=== PATIENT | female | born 1940 | race Two or more races ===

== ENCOUNTER → 2017-05-02 | Outpatient (CLI) | payer BC | END | disposition home or self-care (01) | LOC: HKI 14:56 | DX: M17.11 Unilateral primary osteoarthritis, right knee (principal) | CPT/HCPCS: 73564; 73564-RT ==

== ENCOUNTER → 2017-07-24 | Outpatient (CLI) | payer BC | END | disposition home or self-care (01) | LOC: HKI 10:48 | DX: Z01.818 Encounter for other preprocedural examination (principal) | CPT/HCPCS: Z7500 ==

== ENCOUNTER 2017-07-26 06:15 | Inpatient (IN) | payer BC ==
[~2017-07-26 06:15] MED LIST: CEFAZOLIN SODIUM 2GM/D5W 50 X1 IVPB; TRANEXAMIC ACID 1,000 MG in DEXTROSE 5% 100 ML IV
[2017-07-26] MEDS: CELECOXIB 200 MG CAP PO (06:43)
[2017-07-26] MEDS: DEXAMETHASONE 4 MG/ML 1 ML INJ IV (06:44)
[2017-07-26] MEDS: LANSOPRAZOLE 30 MG CAP PO (06:44)
[2017-07-26] MEDS: oxyCODONE (CR) 10 MG TAB [oxyCONTIN] PO (06:44)
[2017-07-26] MEDS: ONDANSETRON 4 MG INJ IV ×5 (06:44→21:09)
[2017-07-26] MEDS: ACETAMINOPHEN 1000MG/100ML IV 100 ML IVPB (06:45)
[2017-07-26] MEDS: LACTATED RINGER'S 1,000 ML IV* ×2 (06:45→13:54)
[2017-07-26] MEDS ORDERED: MIDAZOLAM 1 MG/ML 2 ML INJ (07:36)
[2017-07-26] MEDS ORDERED: ROPIVACAINE 0.5 % 30 ML VIAL (08:21)
[2017-07-26] MEDS: ROPIVACAINE 0.2% 60 ML, morphine SULFATE (PF) 4 MG, CLONIDINE 100 MCG, KETOROLAC 30 MG,... INJ (08:40)
[2017-07-26] MEDS: BACITRACIN 50000 UNITS INJ (08:41)
[2017-07-26] MEDS: POLYMYXIN B 500000 UNIT INJ (08:42)
[2017-07-26] MEDS ORDERED: LIDOCAINE 2% (SDV) 5 ML INJ (10:04)
[2017-07-26] MEDS ORDERED: ROCURONIUM 50 MG INJ (10:04)
[2017-07-26] MEDS ORDERED: METOCLOPRAMIDE 10 MG INJ (10:04)
[2017-07-26] MEDS ORDERED: ETOMIDATE 20 MG INJ (10:04)
[2017-07-26] MEDS ORDERED: ONDANSETRON 4 MG INJ (10:04)
[2017-07-26] MEDS ORDERED: CEFAZOLIN 1 GM INJ (10:13)
[2017-07-26] MEDS ORDERED: BISACODYL 10 MG SUPP PR (10:30)
[2017-07-26] MEDS ORDERED: KETOROLAC 15 MG INJ IV (10:30)
[2017-07-26] MEDS ORDERED: HYDROmorphONE (0.2 MG/ML) 10ML SYG IV ×2 (10:30)
[2017-07-26] MEDS ORDERED: NA PHOSPHATE/BIPHOS 133 ML ENEMA PR (10:30)
[2017-07-26] MEDS ORDERED: oxyCODONE 5 MG TAB PO (10:30)
[2017-07-26] MEDS ORDERED: NALOXONE (0.4 MG/ML) INJ IV ×2 (10:30)
[2017-07-26] MEDS ORDERED: ZOLPIDEM 5 MG TAB PO (10:30)
[2017-07-26] MEDS ORDERED: ONDANSETRON 4 MG INJ IV (10:30)
[2017-07-26] MEDS ORDERED: MAGNESIUM HYDROXIDE 30ML CUP PO (10:30)
[2017-07-26] MEDS ORDERED: FENTAnyl 50 MCG/ML VIAL IV (10:30)
[2017-07-26] MEDS ORDERED: TRIMETHOBENZAMIDE 100 MG/ML VIAL IM (10:30)
[2017-07-26] MEDS ORDERED: METOCLOPRAMIDE 10 MG INJ IV (10:30)
[2017-07-26] MEDS ORDERED: DIPHENHYDRAMINE 50 MG INJ IV (10:30)
[2017-07-26] MEDS ORDERED: LABETALOL HCL 20MG INJ IV (10:30)
[2017-07-26] MEDS ORDERED: MEPERIDINE 25 MG INJ IV (10:30)
[2017-07-26] MEDS ORDERED: SENNA/DOCUSATE NA (8.6MG/50MG) TAB PO (10:30)
[2017-07-26] MEDS ORDERED: DIPHENHYDRAMINE 50 MG INJ IM (10:30)
[2017-07-26] MEDS ORDERED: ASPIRIN (EC) 325 MG TAB PO (10:32)
[2017-07-26] MEDS ORDERED: DOCUSATE SODIUM 100 MG CAP PO (10:32)
[2017-07-26] MEDS ORDERED: CEFAZOLIN 1 GM/50 ML (PMX) 50 ML IVPB (10:33)
[2017-07-26] MEDS: FENTAnyl 2MCG/ML-ROPIV 0.2% 100 ML BAG EPI ×2 (10:48→21:11)
[2017-07-26] MEDS: CEFAZOLIN 1 GM/50 ML (PMX) 50 ML IVPB ×2 (10:52→17:56)
[2017-07-26] MEDS: ASPIRIN (EC) 325 MG TAB PO (10:52)
[2017-07-26] MEDS: DOCUSATE SODIUM 100 MG CAP PO (10:52)
[2017-07-26] MEDS: HYDROCHLOROTHIAZIDE 25 MG TAB PO (11:30)
[2017-07-26] MEDS ORDERED: LORAZEPAM 0.5 MG TAB PO (11:30)
[2017-07-26] MEDS ORDERED: hydrALAzine 20 MG INJ IV (11:30)
[2017-07-26] MEDS: SOD CHLORIDE 0.9% 1,000 ML IV ×2 (12:58→22:40)
[2017-07-26] MEDS: DIPHENHYDRAMINE 50 MG INJ IV (15:40)
[2017-07-26] MEDS: ATORVASTATIN 10 MG TAB PO (21:09)
[2017-07-26] MEDS: GABAPENTIN 100 MG CAP PO (21:09)
[2017-07-27] MEDS: CEFAZOLIN 1 GM/50 ML (PMX) 50 ML IVPB (02:20)
[2017-07-27] MEDS: SOD CHLORIDE 0.9% 1,000 ML IV ×4 (03:08→23:40)
[2017-07-27] MEDS: ONDANSETRON 4 MG INJ IV (04:57)
[2017-07-27 05:38] LABS: ADD MAN DIFF? NO
[2017-07-27 05:47] LABS: BASOPHILS % 0.2 % (0.0-2.0); EOSINOPHILS % 0.1 % (0.0-7.0); HEMATOCRIT 25.7 % (37.0-47.0); HEMOGLOBIN 8.3 g/dl (12.0-16.0); LYMPHOCYTES # 1.3 10^3/ul (0.8-2.9); LYMPHOCYTES % 15.5 % (15.0-51.0); MEAN CORPUSCULAR HEMOGLOBIN 28.7 pg (29.0-33.0); MEAN CORPUSCULAR HGB CONC 32.3 g/dl (32.0-37.0); MEAN CORPUSCULAR VOLUME 88.9 fl (82.0-101.0); MEAN PLATELET VOLUME 10.3 fl (7.4-10.4); MONOCYTE # 1.4 10^3/ul (0.3-0.9); MONOCYTES % 16.2 % (0.0-11.0); NEUTROPHIL # 5.6 10^3/ul (1.6-7.5); NEUTROPHILS % 67.6 % (39.0-77.0); PLATELET COUNT 175 10^3/UL (140-415); RED BLOOD COUNT 2.89 10^6/ul (4.20-5.40); RED CELL DISTRIBUTION WIDTH 12.7 % (11.5-14.5)
[2017-07-27 05:47] LABS: WHITE BLOOD COUNT 8.3 10^3/ul (4.8-10.8)
[2017-07-27 06:02] LABS: ANION GAP 13 (8-16); BLOOD UREA NITROGEN 14 mg/dl (7-20); CALCIUM 8.8 mg/dl (8.4-10.2); CARBON DIOXIDE 30 mmol/L (21-31); CHLORIDE 107 mmol/L (97-110); CREATININE 1.08 mg/dl (0.44-1.00); GLUCOSE 90 mg/dl (70-220); POTASSIUM 4.4 mmol/L (3.5-5.1); SODIUM 146 mmol/L (135-144)
[2017-07-27] MEDS: ASPIRIN 81 MG TAB PO ×2 (08:31→21:21)
[2017-07-27] MEDS: HYDROCHLOROTHIAZIDE 25 MG TAB PO (08:31)
[2017-07-27] MEDS: FERROUS FUMARATE (SR) TAB PO ×2 (08:31→21:21)
[2017-07-27] MEDS: GABAPENTIN 100 MG CAP PO ×2 (08:32→21:21)
[2017-07-27] MEDS: CELECOXIB 200 MG CAP PO (08:32)
[2017-07-27] MEDS: DOCUSATE SODIUM 100 MG CAP PO ×2 (08:32→21:00)
[2017-07-27] MEDS: BENAZEPRIL 40 MG TAB PO (08:32)
[2017-07-27] MEDS ORDERED: CEPASTAT LOZENGE MT (11:30)
[2017-07-27] MEDS ORDERED: GUAIFENESIN/DM 5ML CUP PO (11:30)
[2017-07-27] MEDS: FENTAnyl 2MCG/ML-ROPIV 0.2% 100 ML BAG EPI (12:38)
[2017-07-27] MEDS: oxyCODONE 5 MG TAB PO (14:43)
[2017-07-27] MEDS: BETHANECHOL 25 MG TAB PO (18:25)
[2017-07-27] MEDS: ATORVASTATIN 10 MG TAB PO (21:21)
[2017-07-28 05:08] LABS: ADD MAN DIFF? NO
[2017-07-28 05:10] LABS: BASOPHILS % 0.2 % (0.0-2.0); EOSINOPHILS % 0.1 % (0.0-7.0); HEMOGLOBIN 9.5 g/dl (12.0-16.0); LYMPHOCYTES # 1.2 10^3/ul (0.8-2.9); LYMPHOCYTES % 12.7 % (15.0-51.0); MEAN CORPUSCULAR HEMOGLOBIN 29.2 pg (29.0-33.0); MEAN CORPUSCULAR HGB CONC 33.9 g/dl (32.0-37.0); MEAN CORPUSCULAR VOLUME 86.2 fl (82.0-101.0); MONOCYTE # 1.3 10^3/ul (0.3-0.9); MONOCYTES % 14.3 % (0.0-11.0); NEUTROPHIL # 6.6 10^3/ul (1.6-7.5); NEUTROPHILS % 72.4 % (39.0-77.0); PLATELET COUNT 192 10^3/UL (140-415); RED BLOOD COUNT 3.25 10^6/ul (4.20-5.40); RED CELL DISTRIBUTION WIDTH 12.7 % (11.5-14.5)
[2017-07-28 05:10] LABS: WHITE BLOOD COUNT 9.2 10^3/ul (4.8-10.8)
[2017-07-28 05:28] LABS: ANION GAP 13 (8-16); BLOOD UREA NITROGEN 8 mg/dl (7-20); CALCIUM 8.6 mg/dl (8.4-10.2); CARBON DIOXIDE 30 mmol/L (21-31); CHLORIDE 97 mmol/L (97-110); CREATININE 0.81 mg/dl (0.44-1.00); GLUCOSE 117 mg/dl (70-220); POTASSIUM 3.3 mmol/L (3.5-5.1); SODIUM 137 mmol/L (135-144)
[2017-07-28 05:32] LABS: PHOSPHORUS 2.6 mg/dl (2.5-4.9)
[2017-07-28 05:32] LABS: MAGNESIUM 1.5 mg/dl (1.7-2.5)
[2017-07-28] MEDS: PANTOPRAZOLE (EC) 40 MG TAB PO (05:37)
[2017-07-28] MEDS: FERROUS FUMARATE (SR) TAB PO ×2 (09:41→20:41)
[2017-07-28] MEDS: ASPIRIN (EC) 325 MG TAB PO ×2 (09:41→20:41)
[2017-07-28] MEDS: oxyCODONE 5 MG TAB PO ×2 (09:43→20:14)
[2017-07-28] MEDS: BENAZEPRIL 40 MG TAB PO (09:43)
[2017-07-28] MEDS: GABAPENTIN 100 MG CAP PO ×2 (09:43→20:41)
[2017-07-28] MEDS: DOCUSATE SODIUM 100 MG CAP PO ×2 (09:43→20:41)
[2017-07-28] MEDS: HYDROCHLOROTHIAZIDE 25 MG TAB PO (09:44)
[2017-07-28] MEDS: CELECOXIB 200 MG CAP PO ×2 (09:47→20:41)
[2017-07-28] MEDS: SOD CHLORIDE 0.9% 1,000 ML IV (12:10)
[2017-07-28 13:26] LABS: ADD UMIC YES; UR ASCORBIC ACID NEGATIVE (NEGATIVE); UR BILIRUBIN (Dip) NEGATIVE (NEGATIVE); UR BLOOD (Dip) 3+ mg/dL (NEGATIVE); UR CLARITY CLEAR (CLEAR); UR COLOR COLORLESS (YELLOW); UR GLUCOSE (Dip) NEGATIVE (NEGATIVE); UR KETONES (Dip) TRACE mg/dL (NEGATIVE); UR LEUKOCYTE ESTERASE (Dip) NEGATIVE Leu/ul (NEGATIVE); UR NITRITE (Dip) NEGATIVE (NEGATIVE); UR RBC 2 /HPF (0-5); UR SPECIFIC GRAVITY (Dip) 1.003 (1.003-1.030); UR TOTAL PROTEIN (Dip) NEGATIVE (NEGATIVE); UR UROBILINOGEN (Dip) NEGATIVE (NEGATIVE); UR WBC 0 /HPF (0-5)
[2017-07-28] MEDS: MAGNESIUM OXIDE 400 MG TAB PO (17:47)
[2017-07-28] MEDS: POTASSIUM CHLORIDE (SR) 20 MEQ TAB PO (17:47)
[2017-07-28] MEDS: ATORVASTATIN 10 MG TAB PO (20:41)
[2017-07-29] MEDS: SOD CHLORIDE 0.9% 1,000 ML IV ×2 (00:40→13:10)
[2017-07-29] MEDS: PANTOPRAZOLE (EC) 40 MG TAB PO (05:29)
[2017-07-29 05:39] LABS: WHITE BLOOD COUNT 5.5 10^3/ul (4.8-10.8)
[2017-07-29 05:39] LABS: ADD MAN DIFF? NO; BASOPHILS % 0.4 % (0.0-2.0); EOSINOPHILS % 0.7 % (0.0-7.0); HEMATOCRIT 26.4 % (37.0-47.0); HEMOGLOBIN 8.7 g/dl (12.0-16.0); LYMPHOCYTES # 1.1 10^3/ul (0.8-2.9); LYMPHOCYTES % 20.1 % (15.0-51.0); MEAN CORPUSCULAR HEMOGLOBIN 28.8 pg (29.0-33.0); MEAN CORPUSCULAR VOLUME 87.4 fl (82.0-101.0); MONOCYTE # 0.8 10^3/ul (0.3-0.9); MONOCYTES % 13.9 % (0.0-11.0); NEUTROPHIL # 3.6 10^3/ul (1.6-7.5); NEUTROPHILS % 64.7 % (39.0-77.0); PLATELET COUNT 187 10^3/UL (140-415); RED BLOOD COUNT 3.02 10^6/ul (4.20-5.40); RED CELL DISTRIBUTION WIDTH 12.8 % (11.5-14.5)
[2017-07-29 06:11] LABS: ANION GAP 10 (8-16); BLOOD UREA NITROGEN 10 mg/dl (7-20); CALCIUM 8.6 mg/dl (8.4-10.2); CARBON DIOXIDE 34 mmol/L (21-31); CHLORIDE 103 mmol/L (97-110); GLUCOSE 103 mg/dl (70-220); POTASSIUM 3.6 mmol/L (3.5-5.1); SODIUM 143 mmol/L (135-144)
[2017-07-29 06:23] LABS: PHOSPHORUS 2.3 mg/dl (2.5-4.9)
[2017-07-29 06:23] LABS: MAGNESIUM 1.9 mg/dl (1.7-2.5)
[2017-07-29] MEDS: BENAZEPRIL 40 MG TAB PO (10:00)
[2017-07-29] MEDS: DOCUSATE SODIUM 100 MG CAP PO (10:01)
[2017-07-29] MEDS: FERROUS FUMARATE (SR) TAB PO (10:01)
[2017-07-29] MEDS: CELECOXIB 200 MG CAP PO (10:01)
[2017-07-29] MEDS: ASPIRIN (EC) 325 MG TAB PO (10:02)
[2017-07-29] MEDS: GABAPENTIN 100 MG CAP PO (10:09)
[2017-07-29] MEDS: HYDROCHLOROTHIAZIDE 25 MG TAB PO (10:09)
[2017-07-29] MEDS: POTASSIUM PHOSPHATE 15 MM in SOD CHLORIDE 0.9% 250 ML IVPB ×2 (13:00→13:43)
[2017-07-29] MEDS: oxyCODONE 5 MG TAB PO (13:42)
[2017-07-29] MEDS: NEUTRA-PHOS 250 MG PACKET PO (16:28)
== END 2017-07-29 17:10 | DRG 470 ==
LOC: REC 06:15 → MS1 12:45
PROC: 0SRC0J9 Replacement of Right Knee Joint with Synthetic Substitute, Cemented, Open Approach (ICD-10-PCS; principal; 2017-07-26 07:29)
DX: M17.11 Unilateral primary osteoarthritis, right knee (principal); I10 Essential (primary) hypertension; E78.5 Hyperlipidemia, unspecified; R50.82 Postprocedural fever
CPT/HCPCS: 73560; 80048; 81001; 83735; 84100; 85025; 86850; 86900; 86901; 87040; 87086; 88304; 88311; 97110; 97116; 97162; 97165; 97530; 97535

== ENCOUNTER → 2017-08-11 | Outpatient (CLI) | payer BC | END | disposition home or self-care (01) | LOC: HKI 10:43 | DX: Z09 Encounter for follow-up examination after completed treatment for conditions other than malignant neoplasm (principal); Z96.651 Presence of right artificial knee joint | CPT/HCPCS: 73562; 73562-RT ==

== ENCOUNTER → 2017-09-15 | Outpatient (CLI) | payer BC | END | disposition home or self-care (01) | LOC: HKI 09:11 | DX: Z47.1 Aftercare following joint replacement surgery (principal); Z89.521 Acquired absence of right knee | CPT/HCPCS: 73562; 73562-RT ==